=== PATIENT | female | born 1950 | race Caucasian/White ===

== ENCOUNTER 2020-01-12 21:37 | Emergency (ER) | payer OTHER, MEDICARE, SELFPAY ==
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
[2020-01-12 21:45] VITALS: BP 140/86; PULSE 108; RESP 18; TEMP 37; O2SAT 97
--- NOTE | 2020-01-12 21:57 | ECG_ITS ---
Measurements Intervals [place] Rate: 100 P: 23 KS: 131 QRS: -2 QRSD: 74 T: 15 QT: 334 QTc: 432 Interpretive Statements SINUS TACHYCARDIA BASELINE ARTIFACT- I, II, AVR, AVF BORDERLINE ECG Electronically Signed On 01-13-2020 6:50:45 CDT by Elia Dial D.O.
[2020-01-12 22:12] LABS: Basophils Absolute Auto 0.1 K/mm3 (0.0-0.1); Basophils Percent Auto 0.8 % (0.2-1.2); Hematocrit 43.5 % (37.0-47.0); Hemoglobin 14.6 g/dL (12.0-15.0); Immature Granulocyte Absolute 0.05 K/mm3 (0.00-0.031); Immature Granulocyte Percent A 0.6 % (0-0.5); Lymphocytes Absolute Auto 2.16 K/mm3 (0.9-3.2); Lymphocytes Percent Auto 24.3 % (18.3-44.2); Mean Corpuscular HGB Conc 33.6 g/dl (32-36); Mean Corpuscular Hemoglobin 33.5 pg (26-34); Mean Corpuscular Volume 99.8 fl (80-100); Mean Platelet Volume 9.5 fl (7.4-10.4); Monocytes Absolute Auto 0.4 K/mm3 (0.1-0.6); Monocytes Percent Auto 4.8 % (2.6-8.5); Neutrophils Absolute Auto 6.2 K/mm3 (1.3-6.7); Neutrophils Percent Auto 69.5 % (45.5-73.1); Platelet Count Result 183 k/mm3 (150-375); Red Blood Count 4.36 M/mm3 (4.2-5.4); Red Cell Distribution Width 12.2 % (11.5-14.5); White Blood Count 8.9 K/mm3 (4.5-10.0)
[2020-01-12 22:25] LABS: Magnesium 1.9 mg/dL (1.6-2.3)
[2020-01-12] MEDS: TETANUS,DIPHTHERIA,AC PERTUSSIS ADULT (0.5 ML) BOOSTRIX IM (22:28)
[2020-01-12 22:36] LABS: Acetaminophen < 10 ug/mL (10-30)
[2020-01-12 22:42] LABS: Ethanol 334 mg/dL (<10)
[2020-01-12 22:46] LABS: Add Urine Microscopic? YES; Appearance Urine Clear (Clear); Bacteria Urine Trace /hpf; Bilirubin Urine Negative (Negative); Blood Urine 2+ (Negative); Color Urine Yellow (Yellow); Glucose Urine UA Negative (Negative); Ketones Urine Negative (Negative); Leukocyte Esterase Ur Trace LEU/UL (Negative); Mucus Urine Rare /lpf; Nitrate Urine Positive (Negative); Protein Urine Negative (Negative); RBC Urine 0-2 /hpf (0-2); Specific Grav Ur 1.009 (1.001-1.035); Squamous Epithelial Cell Urine Occasional /hpf (Few); Urobilinogen Urine Negative mg/dL (<2.0)
[2020-01-12] MEDS: SODIUM CHLORIDE 0.9% IV 1,000 ML 999 ML IV CONT (22:56)
[2020-01-12 22:57] LABS: Amphetamine Screen Urine Negative (Negative); Barbiturate Screen Urine Negative (Negative); Benzodiazepines Screen Urine Negative (Negative); Cannabinoid Screen Urine Negative (Negative); Cocaine Screen Urine Negative (Negative); Methadone Screen Urine Negative (Negative); Opiate Screen Urine Negative (Negative); Phencyclidine Screen Urine Negative (Negative)
[2020-01-12 22:57] LABS: Estimated CRCL calculation 38 ml/min; Estimated Glomerular Filt Rate 55
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
[2020-01-13 02:18] VITALS: BP 139/84; PULSE 99; RESP 18; O2SAT 96
== END 2020-01-13 02:21 | disposition home or self-care (01) ==
PROVIDERS: Emergency Provider Emergency Medicine
DX: S01.81XA Laceration without foreign body of other part of head, initial encounter (principal); S02.2XXA Fracture of nasal bones, initial encounter for closed fracture; S01.21XA Laceration without foreign body of nose, initial encounter; R91.1 Solitary pulmonary nodule; F10.20 Alcohol dependence, uncomplicated; Y90.8 Blood alcohol level of 240 mg/100 ml or more; Z23 Encounter for immunization; V47.5XXA Car driver injured in collision with fixed or stationary object in traffic accident, initial encounter
CPT/HCPCS: 12013; 36415; 70450; 70486; 71260; 72125; 74177; 80307; 81001; 83735; 85025; 90471; 90715; 93005; 96360; 99284; J7030; Q9967

== ENCOUNTER 2020-01-20 14:07 | Emergency (ER) | payer OTHER, MEDICARE, BC, SELFPAY ==
[2020-01-20 14:15] VITALS: BP 134/80; PULSE 92; RESP 17; TEMP 36.6; O2SAT 100
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
== END 2020-01-20 14:50 | disposition home or self-care (01) ==
PROVIDERS: Emergency Provider Nurse Practitioner Family
DX: S01.411D Laceration without foreign body of right cheek and temporomandibular area, subsequent encounter (principal); V49.9XXD Car occupant (driver) (passenger) injured in unspecified traffic accident, subsequent encounter; S01.21XD Laceration without foreign body of nose, subsequent encounter
CPT/HCPCS: 99211; G0463

== ENCOUNTER 2020-06-22 13:42 | Emergency (ER) | payer MEDICARE, SELFPAY ==
[2020-06-22 13:55] VITALS: BP 161/89; PULSE 95; RESP 20; TEMP 36.7; O2SAT 98
--- NOTE | 2020-06-22 14:00 | ED.ANIMALBIT ---
HPI - Animal Bite General Chief Complaint: Wound/Laceration Stated Complaint: Dog bite Time Seen by Provider: 06/22/20 14:00 Source: patient and RN notes reviewed History of Present Illness HPI narrative: Patient is a 70-year-old female who presents the urgent care with complaints of a dog bite to the left wiley. 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 Patient states that happened 5 days ago but she has noticed increased redness surrounding the wound. Patient states that she has been using hydrogen peroxide, Neosporin and soap and water to clean the wound. Patient states that she is not up-to-date on her tetanus but does not want a tetanus . Patient denies of any fever, chills, nausea, vomiting. No other acute complaints. No acute distress noted. Patient aware of the plan of care. Some parts of this dictation were generated by voice recognition software and may contain typographical and/or grammatical inaccuracies. Related Data Allergies Allergy/AdvReac Type Severity Reaction Status Date / Time BLOOD COAUGULANT Allergy Mild Unknown Uncoded 01/20/20 14:29 Review of Systems Review of Systems: Narrative: CONSTITUTIONAL: Denies fever, chills, or sweats. EYES: Denies visual changes, redness, or discharge. ENT: Denies rhinorrhea, congestion, sore throat, or otalgia. CARDIOVASCULAR: Denies chest pain, palpitations, or edema. RESPIRATORY: Denies cough or dyspnea. GASTROINTESTINAL: Denies abdominal pain, nausea, vomiting, or diarrhea. GENITOURINARY: Denies dysuria or hematuria. SKIN: Reports of a dog bite to the left wiley MUSCULOSKELETAL: Denies back pain, joint pain, or myalgia. NEUROLOGIC: Denies headache, numbness, or weakness. All other systems reviewed are negative, except as documented in HPI. PMFSH Social History Social History Alcohol intake: current Gender identity (if verbalized by the patient): Female Comments At the time of my signature, I reviewed and agree with the nursing past medical, surgical, social, and family history. There is no relevant family history pertinent to the patient complaint. Exam Narrative: Exam Narrative: GENERAL: This is a well-nourished, well-developed patient, in no apparent distress. HEAD: normocephalic, atraumatic. EYES: PERRL. Sclera clear/white. Vision is grossly intact. EARS: External ears normal NOSE: External nose normal with no obvious nasal discharge, nares without redness, no rhinorrhea. THROAT: Mucous membranes moist NECK: Neck supple SKIN: Left wiley wound?7 x 5cm? area of erythema with 3 notable scabbed puncture wounds and a L-shaped closed skin tear to the lateral aspect of the erythema NEURO: awake, alert, and oriented to person, place and time. There were no obvious focal neurologic abnormalities. EXTREMITIES: No clubbing, cyanosis, or edema. Course Vital Signs Vital signs: Vital Signs Temperature 98.0 F 06/22/20 13:55 Pulse Rate 95 06/22/20 13:55 Respiratory Rate 20 06/22/20 13:55 Blood Pressure 161/89 H 06/22/20 13:55 Pulse Oximetry 98 06/22/20 13:55 Temperature 98.0 F 06/22/20 13:55 Pulse Rate 95 06/22/20 13:55 Respiratory Rate 20 06/22/20 13:55 Blood Pressure 161/89 H 06/22/20 13:55 Pulse Oximetry 98 06/22/20 13:55 Reviewed-patient is informed that they may have pre-hypertension or hypertension based on a blood pressure reading in the department. I recommend the patient call the primary care provider listed on their discharge instructions or a physician of their choice this week to arrange follow-up for further evaluation of possible pre-hypertension or hypertension. MDM - Animal Bite MDM Narrative Medical decision making narrative: Advised the patient not to use any hydrogen peroxide to the wound. Clean it with plain Dial soap and water. Use prescription cream to the affected area as directed. May keep it open to air if it no
--- NOTE | 2020-06-22 14:35 | PC.NURSE ---
noted pt states will not fill out paperwork related to [facility] animal control at this time
== END 2020-06-22 14:10 | disposition home or self-care (01) ==
PROVIDERS: Emergency Provider Nurse Practitioner Family; PCP Nurse Practitioner Family
DX: S81.812A Laceration without foreign body, left lower leg, initial encounter (principal); S81.832A Puncture wound without foreign body, left lower leg, initial encounter; W54.0XXA Bitten by dog, initial encounter
CPT/HCPCS: 99213; G0463

== ENCOUNTER 2020-11-30 13:41 | Emergency (ER) | payer MEDICARE, SELFPAY ==
[2020-11-30 13:50] VITALS: BP 150/93; PULSE 93; RESP 22; TEMP 37.2; O2SAT 100
[2020-11-30 14:07] VITALS: BP 150/93; PULSE 93; RESP 22; TEMP 37.2; O2SAT 100
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
== END 2020-11-30 14:15 | disposition home or self-care (01) ==
PROVIDERS: Emergency Provider Nurse Practitioner Family; PCP Nurse Practitioner Family
DX: S50.812A Abrasion of left forearm, initial encounter (principal); W19.XXXA Unspecified fall, initial encounter; S30.861A Insect bite (nonvenomous) of abdominal wall, initial encounter; S20.469A Insect bite (nonvenomous) of unspecified back wall of thorax, initial encounter; W57.XXXA Bitten or stung by nonvenomous insect and other nonvenomous arthropods, initial encounter
CPT/HCPCS: 99213; G0463

== ENCOUNTER 2021-02-22 12:15 | Outpatient (CLI) | payer MEDICARE, SELFPAY ==
--- NOTE | ~2021-02-22 | PE_ITS ---
EXAMINATION: PET skull to mid thigh DATE: 02/22/2021 13:58 INDICATION: Solitary pulmonary nodule TECHNIQUE: Blood glucose level was 162 mg/dL. 9.998 mCi of 18-fluorodeoxyglucose (18-FDG) was adminis tered i.v. Low dose computed tomography (CT) images were acquired from the base of the brain to the p roximal thighs for attenuation correction and anatomic localization. Positron emission tomography (PE T) images were acquired in the same distribution beginning 55 minutes after injection. The dose-lengt h product (DLP) was 256.34 mGy-cm. COMPARISON: 01/12/2020 FINDINGS: Head/neck: No abnormal FDG uptake is identified. FDG uptake in the oral cavity without suspicious CT correlate is likely physiologic. Chest: There is a 12 mm x 8 mm part solid nodule of the left upper lobe with slight increase in size since the comparison examination but no associated FDG uptake. The lungs are free of acute opacities. There is no pleural effusion or pneumothorax. No pathologically enlarged thoracic lymph nodes are id entified. The heart size is normal. There is a large sliding hiatal hernia. Abdomen/pelvis/proximal thighs: No abnormal FDG uptake is identified. Physiologic FDG activity is pre sent in the bowel and urinary tract. The liver, spleen, pancreas, and adrenal glands are normal. Ston es are present in the nondistended gallbladder. The kidneys are unremarkable. No pathologically enlar ged abdominal or pelvic lymph nodes are identified. There is no free intraperitoneal gas or evidence of bowel obstruction. The appendix is normal. There is an umbilical hernia containing fat. Colonic di verticulosis is present without evidence of diverticulitis. There is circumferential wall thickening of the urinary bladder. There is a focus of FDG uptake in the ascending colon which is higher than ba ckground but without definite CT correlate. Musculoskeletal: No abnormal FDG uptake is identified. There is worsening of a T12 compression fractu re since the prior examination. There is moderate cervical, thoracic, and lumbar spondylosis. IMPRESSION: 1. Left upper lobe nodule without FDG uptake but with slight increase in size since the prior examina tion. Finding could reflect minimally invasive adenocarcinoma. CT-guided biopsy is recommended. 2. Focus of FDG uptake in the ascending colon abdomen background but without definite CT correlate. R ecommend correlation with colonoscopy history. 3. Worsening T12 compression fracture. Reviewed, dictated and finalized at location B. INE FITTER IMPRESSION: 1. Left upper lobe nodule without FDG uptake but with slight increase in size s venecia the prior examination. Finding could reflect minimally invasive adenocarci noma. CT-guided biopsy is recommended. 2. Focus of FDG uptake in the ascending colon abdomen background but without de finite CT correlate. Recommend correlation with colonoscopy history. 3. Worsening T12 compression fracture.
[2021-02-22 12:39] LABS: Glucose Point of Care 162 mg/dl (65-105)
== END 2021-02-22 12:16 | disposition home or self-care (01) ==
PROVIDERS: PCP Nurse Practitioner Family; Visit Provider Internal Medicine
DX: R91.1 Solitary pulmonary nodule (principal); M48.54XA Collapsed vertebra, not elsewhere classified, thoracic region, initial encounter for fracture
CPT/HCPCS: 78815; A9552

== ENCOUNTER 2021-03-04 10:07 | Outpatient (CLI) | payer MEDICARE, SELFPAY ==
[2021-02-25 09:33] VITALS: BMI 19.8
--- NOTE | 2021-02-25 09:51 | PC.NURSE ---
Report to the Outpatient Waiting Room, entrance under the green pavilion located off [facility], at time __1000 on date ___03/04/21____. OR Time: __1200 . - You and your visitor will be asked a series of questions to screen for COVID 19 for your protection. - A mask is required within the hospital. - Only one visitor is allowed at this time. Patient visitors will be guided where to wait when not with patient. Preoperative COVID Testing Requirements: No COVID Test needed if: (proof is required; if not received patient will have Rapid Test prior to entry) - Patient has received COVID Vaccine at least 14 days prior to procedure date or - Patient has positive COVID test result within last 90 days of surgery date. COVID Test needed if above criteria is not met If not COVID vaccinated a COVID test must be conducted within 72 hours of surgery and patient is asked to isolate self from time of testing until procedure. You will go to the [facility] for your COVID testing. The [facility] is located at the corner of [address] [facility]. You will only be called if COVID results are positive and your surgeon may reschedule your elective surgery date. Patients may have clear liquids (water, carbonated beverages, clear teas, apple juice) until 3 hours prior to surgery with a maximum of 20 ounces. - No food from midnight until time of surgery NPO 6 HRS PRE-PROCEDURE - Infants may have breast milk until 4 hours before surgery, infant formula 6 hours prior to surgery. - Children will be allowed to drink immediately following surgery. If applicable, please bring a bottle or sippy cup to assist with drinking. Juice, water, soda, and popsicles are readily available. For infants on formula, please bring formula the day of surgery. Pacifiers are allowed. Take the following medications with a SIP of water the morning of surgery: AM MEDS Medications to discontinue per physician NONE Date to take last dose Please no make-up, nail burkinan, hairspray, perfume, deodorant, or body powder the day of surgery. No jewelry (including any body piercings) or valuables the day of surgery, leave them at home. Please take a shower or bath the night before, or the morning of, surgery with an antibacterial soap. Wear comfortable, loose fitting clothing. Children are encouraged to wear pajamas. - Jewelry must be removed prior to entering the operating room. Rings and piercings that are not removed may be cut off. - The hospital will not accept responsibility for valuables. - Please leave all valuables, including medications, at home the day of surgery. If you are going home after surgery, a licensed newspaper delivery driver must drive you home. - NO public transportation without another adult. - We recommend that an adult stay with you for 24 hours following discharge. - We also recommend that you do not drive, make important decision, drink alcoholic beverages, or take any drugs that were not prescribed by your health care provider for at least 24 hours after your discharge time. For Pediatric surgeries, we recommend two adults accompany the child home (only one inside the building at this time). Follow any additional instructions given to you from your surgeon. Telephone instructions given to ___PATIENT and asked if any additional questions and then verbalized understanding. Patient advised to call surgeon office or pre surgery nurse liaison [phone] if any additional questions.
[2021-03-04] VITALS (9 sets, daily range): BP systolic 118–133; BP diastolic 65–87; PULSE 74–87; RESP 16; TEMP 36.3; O2SAT 97–100
--- NOTE | ~2021-03-04 | XR_ITS ---
EXAMINATION: XR chest 1V portable DATE: 03/04/2021 14:16 INDICATION: Left lung nodule status post percutaneous biopsy. TECHNIQUE: A single frontal view of the chest was obtained. COMPARISON: Chest single view at 12:48 PM FINDINGS: There is no pneumonia, pleural effusion, or pneumothorax. The heart size is normal. There i s a large hiatal hernia. There is an old left rib fracture. IMPRESSION: 1. Large hiatal hernia. 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 RMATION SECURITY MANAGER IMPRESSION: 1. Large hiatal hernia.
--- NOTE | ~2021-03-04 | CT_ITS ---
EXAMINATION: CT biopsy lung w/imaging DATE: 03/04/2021 12:47 INDICATION: Left lung upper lobe nodule. TECHNIQUE: The procedure including the risks, benefits, and alternatives and possibility of chest tub e placement were discussed with the patient. Risks discussed included infection, approximately 1/20 r isk of symptomatic hemorrhage beyond mild hemoptysis, approximately 1/3 risk of pneumothorax, approxi mately 1/10 risk of pneumothorax severe enough to warrant chest tube placement, and rarely . The patient understood the risks and agreed to proceed. The patient was placed right lateral decubitus. The skin overlying the left lung upper lobe was prepped and draped in sterile fashion. Anesthetic w as administered with 1% lidocaine subcutaneously. A 19 gauge outer needle was advanced under CT guid ance to the lesion of interest. A 20 gauge core biopsy needle was then used to obtain 3 core biopsy s pecimens. The needle was removed and the entry site was cleaned and dressed. The mA was adjusted acco rding to patient size. Iterative reconstruction technique was employed. The dose-length product was 5 81.53 mGy-cm. There were no immediate complications. FINDINGS: CT images demonstrate the outer needle tip adjacent to a 10 mm nodule in left lung upper lo be. Images after the biopsy demonstrate a small volume of hemorrhage around the nodule. IMPRESSION: 1. CT-guided core needle biopsy of a 10 mm nodule in left lung upper lobe. 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 LE SCHOOL SPORTS COACH
--- NOTE | ~2021-03-04 | XR_ITS ---
EXAMINATION: XR chest 1V portable DATE: 03/04/2021 16:09 INDICATION: Left lung nodule status post percutaneous biopsy. TECHNIQUE: A single frontal view of the chest was obtained. COMPARISON: Chest single view at 2:10 PM FINDINGS: There is no pneumonia, pleural effusion, or pneumothorax. The heart size is normal. There i s a large hiatal hernia. There is an old left rib fracture. IMPRESSION: 1. Large hiatal hernia. 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 IT COLLECTIONS SPECIALIST IMPRESSION: 1. Large hiatal hernia.
--- NOTE | ~2021-03-04 | XR_ITS ---
EXAMINATION: XR chest 1V DATE: 03/04/2021 12:49 INDICATION: Left lung nodule status post percutaneous biopsy. TECHNIQUE: A single frontal view of the chest was obtained. COMPARISON: Chest single view 09/13/2010, PET/CT 02/22/2021 FINDINGS: There is a mass in left lung upper lobe. No pleural effusion or pneumothorax. The heart siz e is normal. There is a large hiatal hernia. There is an old healed fracture of left third rib. IMPRESSION: 1. Mass in left lung upper lobe, consistent with postbiopsy hemorrhage. 2. Large hiatal hernia. 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 AL SCIENCES PROFESSOR
[2021-03-04 10:57] LABS: Basophils Percent Auto 0.5 % (0.2-1.2); Eosinophils Percent Auto 0.4 % (0-4.4); Hematocrit 42.2 % (37.0-47.0); Hemoglobin 14.5 g/dL (12.0-15.0); Immature Granulocyte Absolute 0.03 K/mm3 (0.00-0.031); Immature Granulocyte Percent A 0.5 % (0-0.5); Immature Platelet Fraction Pct 3.3 % (0.9-11.2); Lymphocytes Absolute Auto 1.29 K/mm3 (0.9-3.2); Lymphocytes Percent Auto 22.6 % (18.3-44.2); Mean Corpuscular HGB Conc 34.4 g/dl (32-36); Mean Corpuscular Hemoglobin 34.4 pg (26-34); Mean Corpuscular Volume 100.2 fl (80-100); Mean Platelet Volume 9.9 fl (7.4-10.4); Monocytes Absolute Auto 0.7 K/mm3 (0.1-0.6); Monocytes Percent Auto 11.6 % (2.6-8.5); Neutrophils Absolute Auto 3.7 K/mm3 (1.3-6.7); Neutrophils Percent Auto 64.4 % (45.5-73.1); Platelet Count Result 154 k/mm3 (150-375); Red Blood Count 4.21 M/mm3 (4.2-5.4); Red Cell Distribution Width 12.2 % (11.5-14.5); White Blood Count 5.7 K/mm3 (4.5-10.0)
[2021-03-04 11:05] LABS: INR 0.9; Prothrombin Time 12.4 Seconds (11.1-14.7)
--- NOTE | 2021-03-04 16:17 | SUR.PHASEII ---
PER DR EASON PT IS READY TO D/C
== END 2021-03-04 16:37 | disposition home or self-care (01) ==
PROVIDERS: Radiology Diagnostic Radiology; PCP Nurse Practitioner Family; Visit Provider Internal Medicine Pulmonary Disease
PROC: BB24ZZZ Computerized Tomography (CT Scan) of Bilateral Lungs (ICD-10-PCS; CPT 32408; principal; 2021-03-04 11:00)
DX: C34.12 Malignant neoplasm of upper lobe, left bronchus or lung (principal); R91.1 Solitary pulmonary nodule
CPT/HCPCS: 32408; 36415; 71045; 81210; 85025; 85055; 85610; 88271; 88274; 88275; 88305; 88360; 88381

== ENCOUNTER 2022-10-30 13:45 | Emergency (ER) | payer MEDICARE, SELFPAY ==
--- NOTE | ~2022-10-30 | XR_ITS ---
EXAM: XR humerus LT DATE: 10/30/2022 14:25 HISTORY: fell yesterday. left humerus pain/bruising . COMPARISON: None available. FINDINGS: Decreased mineralization. Comminuted fracture of the surgical neck of the left humerus wit h 8mm medial displacement. No lytic or blastic lesion. Joint spaces are maintained. No erosion or per iosteal change. Soft tissues within normal limits. IMPRESSION: Comminuted, mildly displaced fracture of the surgical neck of the left humerus. Reviewed, dictated and finalized at location K. IMPRESSION: Comminuted, mildly displaced fracture of the surgical neck of the l eft humerus.
[2022-10-30 14:05] VITALS: BP 130/101; PULSE 109; RESP 16; TEMP 37.2; O2SAT 99
--- NOTE | 2022-10-30 14:07 | ED.UPPEXIN ---
HPI - Extremity Injury (Upper) General Chief Complaint: Extremity Injury, Upper Stated Complaint: Fell on arm and it's painful & bruised Time Seen by Provider: 10/30/22 14:08 Source: patient, RN notes reviewed and old records reviewed Mode of arrival: ambulatory Limitations: no limitations History of Present Illness HPI narrative: 72 year old female who [facility] with complaints of falling on her left arm yesterday when leaving restaurant with her spouse. She states she had sandals on and rubber sole caused her to loose her balance and she fell, denies any alcohol use at time of incident. Patient has extreme pain to left upper humerus with bruising to left upper arm, unable to move arm on own power related to pain. Patient is holding left arm with right arm, states pain 10/10, has taken Ibuprofen for her discomfort. MD complaint: injury to: left and arm (upper arm) Onset (ago): day(s) (1) Other injuries: none Handedness: right Place: outdoors Severity scale (1-10): 10 Exacerbating factors: movement of extremity Treatments prior to arrival: NSAIDS Related Data Home Medications Medication Instructions Recorded Confirmed atorvastatin 10 mg tablet 10 mg PO DAILY 02/25/21 10/30/22 metformin 500 mg tablet,extended 500 mg PO DAILY 07/12/21 10/30/22 release 24 hr Allergies Allergy/AdvReac Type Severity Reaction Status Date / Time No Known Allergies Allergy Verified 10/30/22 13:59 Review of Systems Review of Systems: CONSTITUTIONAL: Denies fever, chills, or sweats. EYES: Denies visual changes, redness, or discharge. ENT: Denies rhinorrhea, congestion, sore throat, or otalgia. CARDIOVASCULAR: Denies chest pain, palpitations, or edema. RESPIRATORY: Denies cough or dyspnea. GASTROINTESTINAL: Denies abdominal pain, nausea, vomiting, or diarrhea. GENITOURINARY: Denies dysuria or hematuria. SKIN: Denies rash or itching. MUSCULOSKELETAL: Denies back pain, positive for pain to her left upper arm/humerus with bruising, or myalgia. NEUROLOGIC: Denies headache, numbness, or weakness. PSYCHIATRIC: Denies anxiety or depression. All systems reviewed & are unremarkable except as noted in HPI and below PMFSH Past Medical History Medical History Alcohol abuse Colonoscopy planned Dystrophic calcification of bladder Esophagitis GERD (gastroesophageal reflux disease) Hyperlipidemia Hypothyroidism Lung cancer Osteopenia after menopause Type 2 diabetes mellitus Surgical History Surgical History History of tubal ligation S/P lobectomy of lung LEFT LUNG 03/2021 Social History Social History Smoking status: Never smoker Alcohol intake: current Drinks per week: 8 Substance use: never Substance use type: does not use Living arrangements: with family Additional living arrangements comments: [facility] Occupation/Education: retired Gender identity (if verbalized by the patient): Female Sexual Orientation (if Verbalized by the Patient): Straight or Heterosexual Spiritual care concerns: No Comments At time of signature, agree with nursing past medical, surgical, social and family history. There is no relevant family history pertinent to the presenting complaint Exam Narrative: GENERAL: Well-appearing, well-nourished, and in some acute distress related to pain. HEAD: Normocephalic, atraumatic. EYES: PERRLA and EOMI. ENT: Nares clear, no rhinorrhea or epistaxis. Mucous membranes moist. NECK: Supple.no lymphadenopathy CHEST: Clear to auscultation. No respiratory distress.SAO2 99% on room air HEART: Regular rate and rhythm. No murmur heard. Normal peripheral pulses. ABDOMEN: Soft, nontender, nondistended, normal active bowel sounds. EXTREMITIES: Normal range of motion. No edema.Exception noted to left upper arm with bruising and pain to a
== END 2022-10-30 15:04 | disposition home or self-care (01) ==
PROVIDERS: Emergency Provider Registered Nurse; PCP Nurse Practitioner Family
DX: S42.212A Unspecified displaced fracture of surgical neck of left humerus, initial encounter for closed fracture (principal); W19.XXXA Unspecified fall, initial encounter; K21.9 Gastro-esophageal reflux disease without esophagitis; E78.5 Hyperlipidemia, unspecified; E03.9 Hypothyroidism, unspecified; M85.80 Other specified disorders of bone density and structure, unspecified site; E11.9 Type 2 diabetes mellitus without complications; Z79.84 Long term (current) use of oral hypoglycemic drugs; Z85.118 Personal history of other malignant neoplasm of bronchus and lung; Z90.2 Acquired absence of lung [part of]
CPT/HCPCS: 73060; 99214; A4565; G0463

== ENCOUNTER 2024-01-29 11:31 | Outpatient (CLI) | payer MEDICARE, SELFPAY ==
--- NOTE | ~2024-01-29 | XR_ITS ---
Thoracic spine: Clinical Indication: Back pain AP and lateral views were performed. Moderate to severe compression fracture of T12 present. There is moderate degenerative disc narrowing throughout the thoracic spine. Paravertebral soft tissues appear normal. Impression: Moderate to severe T12 compression fracture, age-indeterminate. Reviewed, dictated and finalized at [facility]. Impression: Moderate to severe T12 compression fracture, age-indeterminate.
== END 2024-01-29 11:32 | disposition home or self-care (01) ==
LOC: MICIMG 11:33
PROVIDERS: PCP Family Medicine; Visit Provider Physician Assistant Medical
DX: S22.089A Unspecified fracture of T11-T12 vertebra, initial encounter for closed fracture (principal); W19.XXXA Unspecified fall, initial encounter
CPT/HCPCS: 72072

== ENCOUNTER 2024-02-06 13:01 | Outpatient (CLI) | payer MEDICARE, SELFPAY ==
--- NOTE | ~2024-02-06 | CT_ITS ---
EXAMINATION: CT thoracic spine wo con DATE: 02/06/2024 13:27 INDICATION: Wedge compression fracture of T12. TECHNIQUE: Computed tomography (CT) of the thoracic spine was performed without intravenous contrast. Automated exposure control and iterative reconstruction technique were employed. The dose-length pro duct was 184.33 mGy-cm. COMPARISON: Thoracic spine radiographs 01/29/2024, chest CT 01/12/2020 FINDINGS: There are surgical changes of the gastroesophageal junction. There is a small sliding hiata l hernia. There is 6 degrees levocurvature of thoracic spine. There is a chronic burst fracture of T1 2 with 4/5 loss of height and focal kyphosis. There is mild chronic anterior wedging of T4, T7, T8, T 9, T10, and T11 vertebral bodies. There is mildly decreased disc height at many levels. There is mode rately decreased disc height at T3-T4, T6-T7, and T8-T9. There is multilevel facet joint osteoarthrit is, severe at many levels. There is multilevel mild neural foraminal stenosis. On the right, there is moderate neural foraminal stenosis at T3-T4, T5-T6, and T7-T8. On the left, there is moderate neural foraminal stenosis at T7-T8. There is mild central canal stenosis at T9-T10. IMPRESSION: 1. Chronic burst fracture of T12. 2. Moderate thoracic spondylosis. 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
== END 2024-02-06 13:02 | disposition home or self-care (01) ==
LOC: MICIMG 13:02
PROVIDERS: PCP Family Medicine; Visit Provider Student in an Organized Health Care Education/Training Program
DX: S22.080A Wedge compression fracture of T11-T12 vertebra, initial encounter for closed fracture (principal); X58.XXXA Exposure to other specified factors, initial encounter; M47.814 Spondylosis without myelopathy or radiculopathy, thoracic region
CPT/HCPCS: 72128

== ENCOUNTER 2024-03-18 14:26 | Emergency (ER) | payer MEDICARE, SELFPAY ==
--- NOTE | ~2024-03-18 | XR_ITS ---
EXAMINATION: XR wrist LT min 3V DATE: 03/18/2024 15:02 INDICATION: Left wrist pain and swelling. TECHNIQUE: 4 views of left wrist were obtained. COMPARISON: None. FINDINGS: There is an oblique fracture of distal ulnar diaphysis. The distal fracture fragment demons trates 2 mm ulnar displacement and 10 degrees palmar angulation. There is severe osteoarthritis of tr iscaphe joint and first carpometacarpal joint. IMPRESSION: 1. Oblique fracture of distal ulnar diaphysis. Consider forearm radiographs to exclude other fracture in the bony ring of the forearm. 2. Polyarticular osteoarthritis. 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
--- NOTE | ~2024-03-18 | XR_ITS ---
XR forearm LT 2V Ordering provider: CHERI Madera History: . left wrist fracture FALL yesterday . Comparison: None. FINDINGS: BONES: Fracture in the distal metaphysis of the left ulna. No other definite fractures seen. JOINT SPACES: Normal. SOFT TISSUES: Normal. IMPRESSION: Fracture distal metaphysis of the left ulna. No significant displacement seen. 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 [employer]
[2024-03-18 14:33] VITALS: BP 126/58; PULSE 95; RESP 16; TEMP 37.1; O2SAT 100
--- NOTE | 2024-03-18 14:53 | ED.GENADULT ---
HPI - General Adult General Chief complaint: Extremity Injury, Upper Stated complaint: Left wrist injury Source: patient Mode of arrival: ambulatory Limitations: no limitations History of Present Illness HPI narrative: Patient presents for evaluation after experiencing a fall yesterday. She indicates she slipped on ice and landed on her buttocks and hit her left arm against the ground. She did not hit her head. No LOC. She is not on blood thinners. She now has bruising and pain in the left wrist, with bruising extending into the forearm. She denies any pain in the pelvis or hips. She states she recently had a bone density and has osteopenia. She rates her pain in the left wrist as 8/10 in severity. She took advil for her symptoms, which seemed to help. She is right hand dominant. Related Data Home Medications Medication Instructions Recorded Confirmed atorvastatin 10 mg tablet 10 mg PO DAILY 02/25/21 06/13/23 calcium carbonate (Calcium 500) 500 mg PO DAILY 11/08/22 06/13/23 cholecalciferol (vitamin D3) 03/18/24 Allergies Allergy/AdvReac Type Severity Reaction Status Date / Time No Known Allergies Allergy Verified 03/18/24 14:32 Review of Systems Review of Systems: CONSTITUTIONAL: Denies fever, chills, or sweats. EYES: Denies visual changes, redness, or discharge. ENT: Denies rhinorrhea, congestion, sore throat, or otalgia. CARDIOVASCULAR: Denies chest pain, palpitations, or edema. RESPIRATORY: Denies cough or dyspnea. GASTROINTESTINAL: Denies abdominal pain, nausea, vomiting, or diarrhea. GENITOURINARY: Denies dysuria or hematuria. SKIN: Reports bruising to the left wrist and distal forearm. Denies rash or itching. MUSCULOSKELETAL: Reports left wrist pain. Denies pain in the pelvis and hips/ Denies any other musculoskeletal pain. NEUROLOGIC: Denies headache, numbness, dizziness, or weakness. PSYCHIATRIC: Denies anxiety or depression. [facility], [facility] Past Medical History Medical History Alcohol abuse Dystrophic calcification of bladder Esophagitis GERD (gastroesophageal reflux disease) Hyperlipidemia Hypothyroidism Lung cancer Primary, Adenocarcinoma , 2020 Osteopenia after menopause Type 2 diabetes mellitus Surgical History Surgical History History of tubal ligation S/P lobectomy of lung LEFT LUNG 03/2021 Family History Family History Sibling Throat cancer Social History Social History Smoking status: Never smoker Alcohol intake: current Drinks per week: 8 Substance use: never Substance use type: does not use Lack of Transportation: No Lack of Food: Never True Current Housing: I Have Housing Concerned About Future Housing: No Difficulty Paying Gas/Electric Bills: No Difficulty Paying for Meds: No Currently Unemployed: No Education: High School Diploma/GED Difficulty w/ Childcare or Family Care: No Living arrangements: with family Additional living arrangements comments: [facility] Occupation/Education: retired Gender identity (if verbalized by the patient): Female Sexual Orientation (if Verbalized by the Patient): Straight or Heterosexual Spiritual care concerns: No Exam Narrative: GENERAL: Well-appearing, well-nourished, and in no acute distress. HEAD: Normocephalic, atraumatic. EYES: PERRLA and EOMI. ENT: Nares clear, no rhinorrhea or epistaxis. Mucous membranes moist. Oropharynx without tonsillar hypertrophy exudate or other lesions. Bilateral TMs pearly desir nonbulging NECK: Supple. No adenopathy or masses. No carotid bruits or JVD CHEST: Clear to auscultation. No respiratory distress. No wheezes rales or rhonchi HEART: Regular rate and rhythm. No murmur heard. Normal peripheral pulses. ABDOMEN: Soft, nontender, nondistended, normal active bowel sounds. EXTREMITIES: Full range of motion of the left wrist intact exhibits hesitancy with movement secondary to pain. Tenderness over the left lateral wrist. No deformity. 4/5 hand traffic personnel supervisor strength on left. 5/5 hand traffic personnel supervisor strength on right. SKIN: There is ecchymosis noted to the distal left lateral for NEURO: No focal deficits. Alert and oriented x3. PSYCH: Normal mood and affect. Course Course Emergency Course: This is a 74-year-old female who presented for evaluation of left wrist pain following a fall yesterday. X-ray of the wrist showed distal ulna fracture. Radiologist recommended forearm film which confirmed these findings, without evidence of additional injuries. I recommended a physical exam for hips and pelvis. She declined. She states she has no pain there whatsoever. I did advise she is high risk for hip fracture with an underlying history of osteopenia. She still declined. She is ambulatory without difficulty. She was placed in a sugar tong splint and provided with a sling. Will have her follow-up with Ortho. Go to the ER for change in temperature/sensation or intractable pain. Patient in agreement with plan of care. Level of Care: Express Care Visit Vital Signs Vital signs: Vital Signs Temperature 37.1 C 03/18/24 14:33 Pulse Rate 95 03/18/24 14:33 Respiratory Rate 16 03/18/24 14:33 Blood Pressure 126/58 L 03/18/24 14:33 Pulse Oximetry 100 03/18/24 14:33 Oxygen Delivery Room Air 03/18/24 14:33 Temperature 37.1 C 03/18/24 14:33 Pulse Rate 95 03/18/24 14:33 Respiratory Rate 16 03/18/24 14:33 Blood Pressure 126/58 L 03/18/24 14:33 Pulse Oximetry 100 03/18/24 14:33 Oxygen Delivery Room Air 03/18/24 14:33 Procedures Orthopedic Splinting/Casting Injury #1: Splinting/Casting Date: 03/18/24 Splinting/Casting Time: 15:42 Side: left Upper Extremity Injury Location: forearm Splint: customized in ED OCL: sugar tong Pre-Procedure Neuro Vascular Exam: normal Post-Procedure Neuro Vascular Exam: normal Additional Comments: sling placed Medical Decision Making Vital Signs Vital Signs: Vital Signs Temperature 37.1 C 03/18/24 14:33 Pulse Rate 95 03/18/24 14:33 Respiratory Rate 16 03/18/24 14:33 Blood Pressure 126/58 L 03/18/24 14:33 Pulse Oximetry 100 03/18/24 14:33 Oxygen Delivery Room Air 03/18/24 14:33 Temperature 37.1 C 03/18/24 14:33 Pulse Rate 95 03/18/24 14:33 Respiratory Rate 16 03/18/24 14:33 Blood Pressure 126/58 L 03/18/24 14:33 Pulse Oximetry 100 03/18/24 14:33 Oxygen Delivery Room Air 03/18/24 14:33 Imaging Data Radiologist's impression: XR forearm LT 2V Ordering provider: CHERI Madera History: . left wrist fracture FALL yesterday . Comparison: None. FINDINGS: BONES: Fracture in the distal metaphysis of the left ulna. No other definite fractures seen. JOINT SPACES: Normal. SOFT TISSUES: Normal. IMPRESSION: Fracture distal metaphysis of the left ulna. No significant displacement seen. EXAMINATION: XR wrist LT min 3V DATE: 03/18/2024 15:02 INDICATION: Left wrist pain and swelling. TECHNIQUE: 4 views of left wrist were obtained. COMPARISON: None. FINDINGS: There is an oblique fracture of distal ulnar diaphysis. The distal fracture fragment demonstrates 2 mm ulnar displacement and 10 degrees palmar angulation. There is severe osteoarthritis of triscaphe joint and first carpometacarpal joint. IMPRESSION: 1. Oblique fracture of distal ulnar diaphysis. Consider forearm radiographs to exclude other fracture in the bony ring of the forearm. 2. Polyarticular osteoarthritis. Discharge Plan Discharge Clinical Impression: Closed fracture of distal end of left ulna Patient Disposition: Home, Self-Care Condition: Stable Instructions: Antibiotic Form, Wrist Fracture in Adults (ED) Patient Language: Yi Prescriptions: New hydrocodone-acetaminophen 5-325 mg tablet 1 - 2 tablet PO Q4-6H PRN (Reason: pain) Qty: 20 0RF No Action cholecalciferol (vitamin D3) calcium carbonate [Calcium 500] 500 mg calcium (1,250 mg) tablet,chewable 500 mg PO DAILY atorvastatin 10 mg Tablet 10 mg PO DAILY Follow-up/Referrals: Jesse Atkins MD [Physician] - Indy Torre MD [Primary Care Provider] - Time of Disposition: 15:37
== END 2024-03-18 16:00 | disposition home or self-care (01) ==
PROVIDERS: Emergency Provider Nurse Practitioner; PCP Family Medicine
DX: S52.602A Unspecified fracture of lower end of left ulna, initial encounter for closed fracture (principal); W01.0XXA Fall on same level from slipping, tripping and stumbling without subsequent striking against object, initial encounter; K21.9 Gastro-esophageal reflux disease without esophagitis; E78.5 Hyperlipidemia, unspecified; E03.9 Hypothyroidism, unspecified; E11.9 Type 2 diabetes mellitus without complications; M85.80 Other specified disorders of bone density and structure, unspecified site; Z85.118 Personal history of other malignant neoplasm of bronchus and lung; Z90.2 Acquired absence of lung [part of]
CPT/HCPCS: 29125; 73090; 73110; 99214; A4565; G0463

== ENCOUNTER 2024-04-01 15:33 | Emergency (ER) | payer MEDICARE, SELFPAY ==
[2024-04-01 15:44] VITALS: BP 117/61; PULSE 94; RESP 16; TEMP 37.2; O2SAT 97
--- NOTE | 2024-04-01 16:55 | ED.GENADULT ---
HPI - General Adult General Chief complaint: Upper Respiratory Infection Stated complaint: Sore Throat Source: patient Mode of arrival: ambulatory Limitations: no limitations History of Present Illness HPI narrative: Patient presents for evaluation of sore throat. Symptom onset this morning. She has had strep throat in the past and symptoms this morning were consistent with that. She visualized white exudate in her posterior pharynx. She denies any fever, chills, nausea, vomiting, diarrhea, cough and SOB. No recent sick contacts to her knowledge. Related Data Home Medications ?Medication ?Instructions ?Recorded ?Confirmed ?Last Taken ?Type atorvastatin 10 mg tablet 10 mg PO DAILY 02/25/21 04/01/24 03/04/21 History calcium carbonate (Calcium 500) 500 mg PO DAILY 11/08/22 04/01/24 Unknown History cholecalciferol (vitamin D3) 03/18/24 Unknown History vitamin E (dl, acetate) .ROUTE 04/01/24 Unknown History Allergies Allergy/AdvReac Type Severity Reaction Status Date / Time No Known Allergies Allergy Verified 04/01/24 15:50 Review of Systems Review of Systems: CONSTITUTIONAL: Denies fever, chills, or sweats. EYES: Denies visual changes, redness, or discharge. ENT: Reports sore throat. Denies rhinorrhea, congestion, or otalgia. CARDIOVASCULAR: Denies chest pain, palpitations, or edema. RESPIRATORY: Denies cough or dyspnea. GASTROINTESTINAL: Denies abdominal pain, nausea, vomiting, or diarrhea. GENITOURINARY: Denies dysuria or hematuria. SKIN: Denies rash or itching. MUSCULOSKELETAL: Denies back pain, joint pain, or myalgia. NEUROLOGIC: Denies headache, numbness, dizziness, or weakness. PSYCHIATRIC: Denies anxiety or depression. [facility] Past Medical History Medical History GERD (gastroesophageal reflux disease) Hyperlipidemia Osteopenia after menopause Hypothyroidism Alcohol abuse Type 2 diabetes mellitus Lung cancer Primary, Adenocarcinoma , 2020 Dystrophic calcification of bladder Esophagitis Surgical History Surgical History History of tubal ligation S/P lobectomy of lung LEFT LUNG 03/2021 Family History Family History Sibling Throat cancer Social History Social History Smoking status: Never smoker Alcohol intake: current Drinks per week: 8 Substance use: never Substance use type: does not use Lack of Transportation: No Lack of Food: Never True Current Housing: I Have Housing Concerned About Future Housing: No Difficulty Paying Gas/Electric Bills: No Difficulty Paying for Meds: No Currently Unemployed: No Education: High School Diploma/GED Difficulty w/ Childcare or Family Care: No Living arrangements: with family Additional living arrangements comments: HUSB Occupation/Education: retired Gender identity (if verbalized by the patient): Female Sexual Orientation (if Verbalized by the Patient): Straight or Heterosexual Spiritual care concerns: No Exam Narrative: GENERAL: Well-appearing, well-nourished, and in no acute distress. HEAD: Normocephalic, atraumatic. EYES: PERRLA and EOMI. ENT: Nares clear, no rhinorrhea or epistaxis. Mucous membranes moist. Posterior pharyngeal erythema without exudate. Uvula is midline. Bilateral TMs pearly desir nonbulging NECK: Supple. No adenopathy or masses. No carotid bruits or JVD CHEST: Clear to auscultation. No respiratory distress. No wheezes rales or rhonchi HEART: Regular rate and rhythm. No murmur heard. Normal peripheral pulses. ABDOMEN: Soft, nontender, nondistended, normal active bowel sounds. EXTREMITIES: Normal range of motion. No edema. SKIN: Warm, dry, no rash. NEURO: No focal deficits. Alert and oriented x3. PSYCH: Normal mood and affect. Course Course Emergency Course: This is a 74-year-old female who presented for evaluation sore throat. Rapid strep negative. Through shared decision making opted to proceed with amoxicillin therapy due to approaching holidays and the fact that her current symptoms are consistent with those previously experienced with strep. Increase hydration. Egae-dob-cohbryp agents for symptom management. Follow up with primary provider. Go to the ER for worsening symptoms. Patient in agreement with plan of care. Level of Care: Express Care Visit Vital Signs Vital signs: Vital Signs Temperature 37.2 C 04/01/24 15:44 Pulse Rate 94 04/01/24 15:44 Respiratory Rate 16 12/17/24 15:44 Blood Pressure 117/61 04/01/24 15:44 Pulse Oximetry 97 04/01/24 15:44 Oxygen Delivery Room Air 04/01/24 15:44 Temperature 37.2 C 04/01/24 15:44 Pulse Rate 94 04/01/24 15:44 Respiratory Rate 16 04/01/24 15:44 Blood Pressure 117/61 04/01/24 15:44 Pulse Oximetry 97 04/01/24 15:44 Oxygen Delivery Room Air 04/01/24 15:44 Medical Decision Making Vital Signs Vital Signs: Vital Signs Temperature 37.2 C 04/01/24 15:44 Pulse Rate 94 04/01/24 15:44 Respiratory Rate 16 04/01/24 15:44 Blood Pressure 117/61 04/01/24 15:44 Pulse Oximetry 97 04/01/24 15:44 Oxygen Delivery Room Air 04/01/24 15:44 Temperature 37.2 C 04/01/24 15:44 Pulse Rate 94 04/01/24 15:44 Respiratory Rate 16 04/01/24 15:44 Blood Pressure 117/61 04/01/24 15:44 Pulse Oximetry 97 04/01/24 15:44 Oxygen Delivery Room Air 04/01/24 15:44 Discharge Plan Discharge Clinical Impression: Pharyngitis Patient Disposition: Home, Self-Care Condition: Stable Instructions: Antibiotic Form, Pharyngitis (ED) Patient Language: Georgian Prescriptions: New amoxicillin 500 mg tablet 500 mg PO Q12H Qty: 20 0RF No Action vitamin E (dl, acetate) .ROUTE cholecalciferol (vitamin D3) calcium carbonate [Calcium 500] 500 mg calcium (1,250 mg) tablet,chewable 500 mg PO DAILY atorvastatin 10 mg Tablet 10 mg PO DAILY Follow-up/Referrals: Indy Torre MD [Primary Care Provider] - Time of Disposition: 16:53
[2024-04-01 16:59] LABS: EDSTREPNEGPOS1 Negative (Negative)
== END 2024-04-01 17:00 | disposition home or self-care (01) ==
PROVIDERS: Emergency Provider Nurse Practitioner; PCP Family Medicine
DX: J02.9 Acute pharyngitis, unspecified (principal); E11.9 Type 2 diabetes mellitus without complications; E03.9 Hypothyroidism, unspecified; E78.5 Hyperlipidemia, unspecified; K21.9 Gastro-esophageal reflux disease without esophagitis; M85.80 Other specified disorders of bone density and structure, unspecified site; Z85.118 Personal history of other malignant neoplasm of bronchus and lung; Z90.2 Acquired absence of lung [part of]
CPT/HCPCS: 87081; 87880; 99213; G0463

== ENCOUNTER 2024-06-20 13:51 | Outpatient (CLI) | payer MEDICARE, SELFPAY ==
--- NOTE | ~2024-06-20 | MR_ITS ---
EXAMINATION: MR lumbar spine wo con DATE: 06/20/2024 14:22 INDICATION: Spondylosis without myelopathy or radiculopathy. Low back pain. TECHNIQUE: Magnetic resonance imaging (MRI) of the lumbar spine was performed without intravenous con trast. Sequences included sagittal T2-weighted FSE, sagittal T2-weighted FS FSE, sagittal T1-weighted FSE, and axial T2-weighted FSE. COMPARISON: None FINDINGS: There is 5 degrees levocurvature of thoracolumbar spine. There is mild chronic anterior wed ging of T10 and T11 vertebral bodies. There is a chronic compression fracture of T12 with 4/5 loss of height and focal kyphosis. There is 4 mm retrolisthesis of L5 on S1. There is mildly decreased disc height at T12-L1 and severely decreased disc height at L5-S1. The distal spinal cord signal intensity is normal. The conus medullaris is at L1-L2. The following disc levels are specifically discussed: L1-L2: The disc does not extend beyond the endplate margin. There is moderate bilateral facet joint o steoarthritis. There is no neural foraminal stenosis. There is no central canal stenosis. L2-L3: The disc does not extend beyond the endplate margin. There is moderate bilateral facet joint o steoarthritis. There is no neural foraminal stenosis. There is no central canal stenosis. L3-L4: The disc is bulging. There is severe bilateral facet joint osteoarthritis. There is mild bilat eral neural foraminal stenosis. There is mild central canal stenosis. L4-L5: The disc is bulging. There is severe bilateral facet joint osteoarthritis. There is mild bilat eral neural foraminal stenosis. There is mild central canal stenosis. L5-S1: The disc is bulging with superimposed central extrusion. There is severe bilateral facet joint osteoarthritis. There is mild bilateral neural foraminal stenosis. There is mild central canal steno sis. IMPRESSION: 1. Severe lower lumbar spondylosis. 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 EXAMINER
== END 2024-06-20 13:52 | disposition home or self-care (01) ==
LOC: MICIMG 13:52
PROVIDERS: PCP Family Medicine; Visit Provider Family Medicine
DX: M47.816 Spondylosis without myelopathy or radiculopathy, lumbar region (principal)
CPT/HCPCS: 72148

== ENCOUNTER 2025-01-02 17:11 | Emergency (ER) | payer MEDICARE, SELFPAY ==
--- NOTE | ~2025-01-02 | XR_ITS ---
EXAMINATION: XR ankle RT min 3V, 01/02/2025 17:23 CDT HISTORY: rolled right ankle 3 days ago. pain med and latera COMPARISON: No comparisons available. Findings: No acute fracture or malalignment. No significant degenerative changes. Soft tissues unremarkable. Impression: No acute fracture or malalignment. 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 Impression: No acute fracture or malalignment.
[2025-01-02 17:18] VITALS: BP 140/83; PULSE 92; RESP 16; TEMP 37; O2SAT 100
--- NOTE | 2025-01-02 17:55 | ED.LOWEXIN ---
HPI - Extremity Injury (Lower) General Chief Complaint: Extremity Injury, Lower Stated Complaint: right ankle injury Time Seen by Provider: 01/02/25 17:50 Source: patient and RN notes reviewed Mode of arrival: ambulatory Limitations: no limitations History of Present Illness HPI Narrative: Patient presents today complaining of a right ankle injury. She was at home and twisted her ankle in her yard 3 days ago. Denies numbness or tingling. Currently rates her pain 2-3/10 and has tried no OTC treatment prior to arrival. She has been ambulatory since the injury. Related Data Home Medications ?Medication ?Instructions ?Recorded ?Confirmed ?Last Taken ?Type calcium carbonate (Calcium 500) 500 mg PO DAILY 11/08/22 07/02/24 Unknown History cholecalciferol (vitamin D3) 03/18/24 07/02/24 Unknown History Allergies Allergy/AdvReac Type Severity Reaction Status Date / Time No Known Allergies Allergy Verified 01/02/25 17:28 [facility] Past Medical History Medical History GERD (gastroesophageal reflux disease) Hyperlipidemia Osteopenia after menopause Hypothyroidism Alcohol abuse Type 2 diabetes mellitus Lung cancer Primary, Adenocarcinoma , 2020 Dystrophic calcification of bladder Esophagitis Surgical History Surgical History History of tubal ligation S/P lobectomy of lung LEFT LUNG 03/2021 Family History Family History Sibling Throat cancer Social History Social History Smoking status: Never smoker Alcohol intake: current Drinks per week: 8 Substance use: never Substance use type: does not use Current Housing: Decline to Answer Concerned About Future Housing: Decline to Answer Difficulty Paying Gas/Electric Bills: Decline to Answer Difficulty Paying for Meds: Decline to Answer Currently Unemployed: Decline to Answer Education: Decline to Answer Difficulty w/ Childcare or Family Care: Decline to Answer Living arrangements: with family Additional living arrangements comments: HUSB Occupation/Education: retired Gender identity (if verbalized by the patient): Female Sexual Orientation (if Verbalized by the Patient): Straight or Heterosexual Spiritual care concerns: No Comments At time of signature, I have reviewed and agree with nursing past medical, surgical, social and family history unless otherwise noted. Please see nursing chart for further information. There is no relevant family history pertinent to the presenting complaint Exam Narrative: GENERAL: Well-appearing, well-nourished, and in no acute distress. HEAD: Normocephalic, atraumatic. EYES: EOMI. No redness or drainage. Conjunctivae normal. ENT: Mucous membranes pink and moist. NECK: Normal AROM. CHEST: No respiratory distress. EXTREMITIES: Left ankle: Generally tender with mild to moderate swelling about the ankle. Mild ecchymosis as well. No deformity. No tenderness to the foot but foot does have mild edema. Distal sensation intact. Capillary refill normal. Pedal pulse normal. Decreased range of motion of the ankle due to pain and swelling. SKIN: Warm, dry, no rash. Capillary refill normal. Normal skin turgor. NEURO: No focal deficits. Alert and oriented x3. Gait steady. PSYCH: Normal affect. No signs of depression or anxiety. Course Course Level of Care: Express Care Visit Vital Signs Vital signs: Vital Signs Temperature 98.6 F 01/02/25 17:18 Pulse Rate 92 01/02/25 17:18 Respiratory Rate 16 01/02/25 17:18 Blood Pressure 140/83 01/02/25 17:18 Pulse Oximetry 100 01/02/25 17:18 Temperature 98.6 F 01/02/25 17:18 Pulse Rate 92 01/02/25 17:18 Respiratory Rate 16 01/02/25 17:18 Blood Pressure 140/83 01/02/25 17:18 Pulse Oximetry 100 01/02/25 17:18 Reviewed MDM - Extremity Injury (Lower) MDM Narrative Medical decision making narrative: 74-year-old female patient twisted her ankle 3 days ago injuring it. No OTC treatment prior to arrival. Upon exam, patient has edema and tenderness about the ankle. Neurovascularly intact. Ankle x-rays negative. Recommend conservative treatment for 7-10 days with PCP or orthopedic follow-up if symptoms persist. Vital signs stable. Patient agrees with plan. Anticipatory guidance given. Differential Diagnosis Differential diagnosis: Likely ankle sprain and strain and ankle fracture Imaging Data Radiologist's impression: ITS Impressions Ankle X-Ray 01/02/25 17:43 Impression: No acute fracture or malalignment. Critical Care Time Critical Care Time Critical Care Time: No Discharge Plan Discharge Clinical Impression: Right ankle sprain Qualifiers: Encounter type: initial encounter Involved ligament of ankle: unspecified ligament Qualified Code(s): S93.401A - Sprain of unspecified ligament of right ankle, initial encounter Patient Disposition: Home Condition: Stable Instructions: Ankle Sprain (DC) Additional Instructions: Your x-rays negative for fracture. Elevate and ice the ankle. Wear the Srikanth wrap for comfort and stability. Take Tylenol for pain if needed. Follow-up with your PCP or orthopedics in 7 days if symptoms are not improving. Your blood pressure was elevated above 120/80 today at Urgent Care. This puts you above the threshold for follow up. Please schedule a followup visit with your personal physician as soon as possible, for further evaluation and treatment. Even blood pressure exceeding 120/80 may indicate pre-hypertension. Patient Language: Persian Prescriptions: No Action cholecalciferol (vitamin D3) calcium carbonate [Calcium 500] 500 mg calcium (1,250 mg) tablet,chewable 500 mg PO DAILY mirtazapine 7.5 mg tablet 7.5 mg PO QHS Qty: 90 1RF atorvastatin 10 mg tablet 10 mg PO DAILY Qty: 90 3RF Follow-up/Referrals: Jesse Atkins MD [Physician, Orthopedics] Indy Torre MD [Primary Care Provider, Family Practice] Time of Disposition: 17:58
== END 2025-01-02 18:00 | disposition home or self-care (01) ==
PROVIDERS: Emergency Provider Nurse Practitioner; PCP Family Medicine
DX: S93.401A Sprain of unspecified ligament of right ankle, initial encounter (principal); X50.1XXA Overexertion from prolonged static or awkward postures, initial encounter; E11.9 Type 2 diabetes mellitus without complications; E03.9 Hypothyroidism, unspecified; E78.5 Hyperlipidemia, unspecified; K21.9 Gastro-esophageal reflux disease without esophagitis; M85.80 Other specified disorders of bone density and structure, unspecified site; Z85.118 Personal history of other malignant neoplasm of bronchus and lung
CPT/HCPCS: 73610; 99213; G0463